=== PATIENT | male | born 1960 | race Caucasian/White ===

== ENCOUNTER 2016-11-12 13:52 | Emergency (ER) | payer SELFPAY ==
[~2016-11-12] VITALS: Ht 165.1 cm; Wt 75.0 kg
[2016-11-12 14:40] VITALS: BP 150/85
[2016-11-12] MEDS ORDERED: LIDOCAINE HCL 1% 20ML VIAL (Pyxis) INJ MC ONE (15:15)
[2016-11-12] MEDS ORDERED: BACITRACIN ZINC OINT UDPKT TOP ONE (15:15)
[2016-11-12] MEDS ORDERED: ACETAMINOPHEN 325MG TABLET PO ONE (15:15)
== END 2016-11-12 17:01 | disposition home or self-care (01) ==
LOC: ER 15:52
DX: S61.210A Laceration without foreign body of right index finger without damage to nail, initial encounter (principal); W45.8XXA Other foreign body or object entering through skin, initial encounter; Y93.89 Activity, other specified; Y92.89 Other specified places as the place of occurrence of the external cause; Y99.8 Other external cause status
CPT/HCPCS: 12001; 99283; J3490; X7700; Z7610